=== PATIENT | female | born 1930 | race Caucasian/White ===

== ENCOUNTER 2017-01-01 19:54 | Emergency (ER) | payer BC ==
[~2017-01-01 19:54] MED LIST: ALPR-411 PO; FLUO20CA35 PO; MULT-884 PO
[2017-01-01 19:57] VITALS: TEMP 37.2; Ht 160 cm
[2017-01-01] MEDS ORDERED: FLUO20CA36 PO (20:13)
[2017-01-01 20:45] LABS: BASO % 0.1 %; BASO ABS # 0.01 K/uL (0-0.2); COMPLETE YES; EOS % 3.2 %; IG% 0.2 %; LYMPH % 17.7 %; LYMPH ABS # 1.89 K/uL (1.2-3.4); MEAN CELL VOLUME 87.1 fL (80-100); MEAN CORPUSCULAR HEMOGLOBIN 26.6 pg (25-34); MEAN CORPUSCULAR HGB CONC 30.5 g/dl (32-36); MEAN PLATELET VOLUME 9.1 fL (7.4-10.4); MONO % 11.5 %; NEUT % 67.3 %; PLATELET COUNT 303 K/uL (130-400); RED BLOOD COUNT 4.59 M/uL (4.2-5.4); WHITE BLOOD COUNT 10.69 K/uL (4.8-10.8)
--- NOTE | 2017-01-01 20:55 | DIAGNOSTIC IMAGING REPORT ---
L HAND MIN 3 VIEWS ROUTINE CLINICAL HISTORY: 86 years-old Female presenting with left hand pain, swelling, no injury. TECHNIQUE: Frontal, oblique, and lateral views of the left hand were obtained. COMPARISON: Correlation made to plain radiographs of the right hand from 10/21/2014. FINDINGS: Osteopenia. Degenerative changes of the first carpometacarpal articulation and less significantly at the first metacarpophalangeal joint. Subluxation of the first metacarpal relative to the trapezium, which is less severe than on the right. This is likely degenerative in etiology. Allowing for osteopenia, no convincing evidence of an acute fracture. Possible post traumatic deformities of the radial and ulnar metaphyses. IMPRESSION: Allowing for osteopenia, no convincing evidence of acute osseous injury. Degenerative related subluxation of the first metacarpal relative to the trapezium. Electronically signed by: Masoud Viveros M.D. 01/01/2017 8:54 PM Dictated Date/Time: 01/01/2017 8:51 PM
[2017-01-01 21:03] LABS: BLOOD UREA NITROGEN 19 mg/dl (7-18); BUN/CREATININE RATIO 22.8 (10-20); C-REACTIVE PROTEIN 7.64 mg/dl (0-0.29); CALCIUM 9.2 mg/dl (8.5-10.1); CARBON DIOXIDE 27 mmol/L (21-32); CHLORIDE 100 mmol/L (98-107); CREATININE 0.85 mg/dl (0.60-1.20); GLUCOSE 118 mg/dl (70-99); POTASSIUM 3.5 mmol/L (3.5-5.1); SODIUM 134 mmol/L (136-145)
--- NOTE | 2017-01-01 21:26 | EMERGENCY ROOM VISIT NOTE ---
History First contact with patient: 20:05 Chief Complaint: HAND PAIN/INJURY Stated Complaint: SWELLING AND PAIN IN LEFT HAND History of Present Illness The patient is a 86 year old female who presents to the Emergency Room accompanied by her 2 sons complaining of swelling and pain in the left hand. The patient has a history of dementia and history is mostly obtained from her son. He states that the patient developed some swelling in her second and third knuckles one week ago. He reports this improved, but returned yesterday. He notes swelling throughout the left hand. The patient rates her discomfort a 4/10. She states it is warm to touch. She denies any injury to the hand. She has a history of osteoarthritis but denies any history of rheumatologic conditions. She denies history of blood clots. Review of Systems A complete 10 point review of systems was reviewed with the patient with pertinent positives and negatives as per history of present illness. All else were negative. Past Medical/Surgical History Medical Problems: (1) Arthritis (2) Asthma (3) Bronchitis (4) Hiatal hernia (5) Hypercholesteremia (6) Pneumonia (7) SOB (shortness of breath) Surgical Problems: (1) H/O lumpectomy (2) H/O mastectomy Social History Smoking Status: Never Smoker Alcohol Use: none Drug Use: none Marital Status: Housing Status: lives with family Occupation Status: retired Current/Historical Medications Scheduled Cephalexin Monohydrate (Keflex), 500 MG PO QID Fluoxetine HCl (Fluoxetine HCl), 20 MG PO DAILY Physical Exam Vital Signs Date Time Temp Pulse Resp B/P (MAP) Pulse Ox O2 Delivery O2 Flow Rate FiO2 01/01/17 22:10 87 20 158/74 96 Room Air 01/01/17 19:57 37.2 90 18 146/77 96 Room Air Physical Exam VITALS: Vitals are noted on the nurse's note and reviewed by myself. Vital signs stable. GENERAL: This is an 86-year-old female, in no acute distress, nondiaphoretic, well-developed well-nourished. HEART: Regular rate and rhythm without murmurs gallops or rubs. LUNGS: Clear to auscultation bilaterally without wheezes, rales or rhonchi. MUSCULOSKELETAL: There is erythema, mild warmth and erythema to the dorsal surface of the left hand, extending from the PIPs to just past the wrist. Full range of motion of the hand. NEURO: Patient was alert and oriented to person and place. Normal sensation to light and sharp touch. Medical Decision & Procedures ER Provider Diagnostic Interpretation: L VENOUS DOPPLER UPR EXT UNIL FINDINGS: Left: Internal jugular vein: Patent. Subclavian vein: Patent. Axillary vein: Patent. Basilic vein: Patent. Brachial vein: Patent. Cephalic vein: Patent. Radial vein: Patent. Ulnar vein: Patent. Other: None. IMPRESSION: No evidence of deep venous thrombosis. L HAND MIN 3 VIEWS ROUTINE FINDINGS: Osteopenia. Degenerative changes of the first carpometacarpal articulation and less significantly at the first metacarpophalangeal joint. Subluxation of the first metacarpal relative to the trapezium, which is less severe than on the right. This is likely degenerative in etiology. Allowing for osteopenia, no convincing evidence of an acute fracture. Possible post traumatic deformities of the radial and ulnar metaphyses. IMPRESSION: Allowing for osteopenia, no convincing evidence of acute osseous injury. Degenerative related subluxation of the first metacarpal relative to the trapezium. Laboratory Results 01/01/17 20:30 Red Blood Count 4.59, Mean Corpuscular Volume 87.1, Mean Corpuscular Hemoglobin 26.6, Mean Corpuscular Hemoglobin Concent 30.5, Mean Platelet Volume 9.1, Neutrophils (%) (Auto) 67.3, Lymphocytes (%) (Auto) 17.7, Monocytes (%) (Auto) 11.5, Eosinophils (%) (Auto) 3.2, Basophils (%) (Auto) 0.1, Neutrophils # (Auto ) 7.20, Lymphocytes # (Auto) 1.89, Monocytes # (Auto) 1.23, Eosinophils # (Auto ) 0.34, Basophils # (Auto) 0.01 01/01/17 20:30 Test 01/01/17 20:30 White Blood Count 10.69 K/uL (4.8-10.8) Red Blood Count 4.59 M/uL (4.2-5.4) Hemoglobin 12.2 g/dL (12.0-16.0) Hematocrit 40.0 % (37-47) Mean Corpuscular Volume 87.1 fL (80-100) Mean Corpuscular Hemoglobin 26.6 pg (25-34) Mean Corpuscular Hemoglobin Concent 30.5 g/dl (32-36) Platelet Count 303 K/uL (130-400) Mean Platelet Volume 9.1 fL (7.4-10.4) Neutrophils (%) (Auto) 67.3 % Lymphocytes (%) (Auto) 17.7 % Monocytes (%) (Auto) 11.5 % Eosinophils (%) (Auto) 3.2 % Basophils (%) (Auto) 0.1 % Neutrophils # (Auto) 7.20 K/uL (1.4-6.5) Lymphocytes # (Auto) 1.89 K/uL (1.2-3.4) Monocytes # (Auto) 1.23 K/uL (0.11-0.59) Eosinophils # (Auto) 0.34 K/uL (0-0.5) Basophils # (Auto) 0.01 K/uL (0-0.2) RDW Standard Deviation 43.8 fL (36.4-46.3) RDW Coefficient of Variation 13.9 % (11.5-14.5) Immature Granulocyte % (Auto) 0.2 % Immature Granulocyte # (Auto) 0.02 K/uL (0.00-0.02) Erythrocyte Sedimentation Rate > 90 mm/hr (0-21) Anion Gap 7.0 mmol/L (3-11) Estimated GFR () 72.4 Estimated GFR (Non- 62.5 BUN/Creatinine Ratio 22.8 (10-20) Calcium Level 9.2 mg/dl (8.5-10.1) C-Reactive Protein 7.64 mg/dl (0-0.29) Medications Administered Medications (Trade) Dose Ordered Sig/Harish Route Start Time Stop Time Status Last Admin Dose Admin Cephalexin Monohydrate (Keflex 500MG Home Pack) 1 homepack NOW ONCE PO 01/01/17 22:00 01/01/17 22:01 DC 01/01/17 22:10 1 HOMEPACK Medical Decision Differential diagnosis includes cellulitis, DVT, superficial thrombosis, rheumatoid disorder, fracture, contusion, among others. The patient is an 86-year-old female who presents today complaining of left hand pain and swelling. Labs revealed no leukocytosis. There was elevation of the ESR and CRP. X-ray showed significant degenerative changes without any acute findings. Ultrasound showed no evidence of DVT. The patient will be treated for cellulitis. She has a listed allergy to penicillin, but states this was as a child and she is unsure what her allergy is. She will be placed on Keflex. She was advised to follow-up with her primary care provider for a recheck in 48 hours. She will return for any worsening or new/concerning symptoms. She and her sons verbalized understanding of my assessment and treatment plan and the patient was discharged home in good condition. The patient was independently evaluated by Dr. Whitten, ED attending physician, who agreed with my assessment and treatment plan. Medication Reconcilliation Current Medication List: was personally reviewed by me Blood Pressure Screening Patient's blood pressure: Elevated blood pressure Blood pressure disposition: Elevated BP felt to be situational Impression Primary Impression: Cellulitis of left hand Departure Information Dispostion Home / Self-Care Condition GOOD Prescriptions Cephalexin Monohydrate (Keflex) 500 Mg Cap 500 MG PO QID for 10 Days, #40 CAP Prov: Ana Heck ., NERIS 01/01/17 Referrals No Doctor, Assigned (PCP) Patient Instructions [facility] Additional Instructions You were prescribed Keflex to be taken 4 times daily as prescribed. This is an antibiotic. All antibiotics have the potential to cause diarrhea. Stop this medication and contact a medical provider if you were to develop any significant adverse side effects including: wheezing, shortness of breath, passing out, vomiting, or a diffuse rash. Always take antibiotics as directed and COMPLETE the ENTIRE course regardless of the improvement of your symptoms. For pain control, you can use the following [id number] medicines (if >12 yo): - Regular strength (325mg/tab) Tylenol (acetaminophen) 2 tabs every 4-6 hours as needed. Do not exceed 12 tablets in a 24 hour period. Avoid taking more than 4 grams (4000 mg) of Tylenol per day. This includes any other sources of acetaminophen you may take on a regular basis. - Regular strength (200 mg/tab) Advil (ibuprofen) 1-2 tabs every 4-6 hours as needed. Do not exceed a dose of 3200 mg per day. Follow-up with the primary care provider for a recheck in 48 hours. Return to the emergency department with worsening redness, worsening swelling, fevers or any other new/concerning symptoms.
--- NOTE | 2017-01-01 21:30 | DIAGNOSTIC IMAGING REPORT ---
L VENOUS DOPPLER UPR EXT UNIL CLINICAL HISTORY: 86 years-old Female presenting with left hand pain, swelling, no injury. TECHNIQUE: Real-time grayscale and color and spectral Doppler ultrasound imaging of the veins of the left upper extremity was performed. Compression and augmentation were also utilized. COMPARISON: None. FINDINGS: Left: Internal jugular vein: Patent. Subclavian vein: Patent. Axillary vein: Patent. Basilic vein: Patent. Brachial vein: Patent. Cephalic vein: Patent. Radial vein: Patent. Ulnar vein: Patent. Other: None. IMPRESSION: No evidence of deep venous thrombosis. Electronically signed by: Masoud Viveros M.D. 01/01/2017 9:28 PM Dictated Date/Time: 01/01/2017 9:27 PM
[2017-01-01] MEDS ORDERED: CEPHALEXIN 500MG HOME PACK 1 EA BTL PO ONE (22:00)
--- NOTE | 2017-01-01 22:09 | EMERGENCY ROOM VISIT NOTE ---
ED Visit Note First contact with patient: 20:05 This Patient was discussed with the physician Federal Law Clerk, Umang Perez PA-C. The pertinent historical and physical exam findings were confirmed. I agree with the studies ordered and with the interpretations of these studies. I agree with the disposition and care plan.
[2017-01-01 22:10] VITALS: BP 158/74; PULSE 87; O2SAT 96
[2017-01-01] MEDS ORDERED: CEPH500C PO (22:13)
== END 2017-01-01 22:21 | disposition home or self-care (01) ==
LOC: C.EDB 19:55 → C.EDD 22:21
DX: L03.114 Cellulitis of left upper limb (principal); M79.642 Pain in left hand; M79.89 Other specified soft tissue disorders; F03.90 Unspecified dementia, unspecified severity, without behavioral disturbance, psychotic disturbance, mood disturbance, and anxiety; J45.909 Unspecified asthma, uncomplicated; Z87.01 Personal history of pneumonia (recurrent); Z87.09 Personal history of other diseases of the respiratory system; Z87.19 Personal history of other diseases of the digestive system